=== PATIENT | male | born 1940 | race Caucasian/White ===

== ENCOUNTER 2021-07-23 19:20 | Inpatient (IN) | payer MEDICARE ==
[~2021-07-23] VITALS: Ht 172.7 cm; Wt 68.5 kg
[2021-07-23] MEDS ORDERED: HALOPERIDOL LACTATE 5 MG/1 ML VIAL IM ONE (20:00)
[2021-07-23] MEDS ORDERED: LORAZEPAM 2 MG/1 ML VIAL IM ONE (20:00)
[2021-07-23] MEDS ORDERED: HALOPERIDOL LACTATE 5 MG/1 ML VIAL ONE ×2 (20:02)
[2021-07-23] MEDS ORDERED: LORAZEPAM 2 MG/1 ML VIAL ONE (20:02)
[2021-07-23 20:10] LABS: HEMATOCRIT 37.5 % (36.7-47.1); MEAN CORPUSCULAR HEMOGLOBIN 30.9 uug (23.8-33.4); MEAN CORPUSCULAR VOLUME 94.5 fL (73.0-96.2); PLATELET COUNT (AUTO) 111 K/uL (152-348)
[2021-07-23 20:19] LABS: ALANINE AMINOTRANSFERASE 14 U/L (16-63); ALKALINE PHOSPHATASE 74 U/L (50-136); ASPARTATE AMINOTRANSFERASE 6 U/L (15-37); BILIRUBIN,DIRECT 0.2 mg/dL (0.0-0.2); BILIRUBIN,TOTAL 0.6 mg/dL (0.2-1.0); CARBON DIOXIDE 30 mmol/L (21-32); CHLORIDE 100 mmol/L (98-107); CREATININE 1.2 mg/dL (0.6-1.3); GLUCOSE 112 mg/dL (74-106); POTASSIUM 4.8 mmol/L (3.5-5.1); TOTAL PROTEIN, SERUM 7.3 g/dL (6.4-8.2); UREA NITROGEN, BLOOD 19 mg/dL (7-18)
[2021-07-23 20:20] LABS: ACETAMINOPHEN < 2.0 ug/mL (10-30)
[2021-07-23 20:21] LABS: ETHANOL < 3 MG/DL (0-0)
[2021-07-23] MEDS ORDERED: LEVE500T20 PO (20:45)
[2021-07-23] MEDS ORDERED: PROCHLORPERAZINE PR (20:45)
[2021-07-23] MEDS ORDERED: DIVA125T2 PO (20:45)
[2021-07-23] MEDS ORDERED: TRAZ-257 PO (20:45)
[2021-07-23] MEDS ORDERED: ASPI81TA31 PO (20:45)
[2021-07-23] MEDS ORDERED: CHOL200026 PO (20:45)
[2021-07-23] MEDS ORDERED: ACET-73 PO (20:45)
[2021-07-23] MEDS ORDERED: CLON0.5T4 PO (20:45)
[2021-07-23] MEDS ORDERED: MEMA10TA PO (20:45)
[2021-07-23] MEDS ORDERED: TRAZ-182 PO (20:45)
[2021-07-23] MEDS ORDERED: SENN-261 PO (20:45)
[2021-07-23] MEDS ORDERED: ESCI20TA44 PO (20:45)
[2021-07-23] MEDS ORDERED: POLY17PO4 PO (20:45)
[2021-07-23] MEDS ORDERED: HALO100A2 PO (20:45)
[2021-07-23] MEDS ORDERED: ROXANOL SL (20:45)
[2021-07-23] MEDS ORDERED: LORA2ORA PO (20:45)
[2021-07-23] MEDS ORDERED: RISPERDAL SL (20:45)
[2021-07-23] MEDS ORDERED: LACT10SO3 PO (20:45)
[2021-07-23] MEDS ORDERED: HYOS0.1273 SL (20:45)
[2021-07-23] MEDS ORDERED: C ABH TOP (20:45)
[2021-07-23] MEDS ORDERED: ZINC85CR TP (20:45)
[2021-07-23] MEDS ORDERED: BISA10SU61 RC (20:45)
[2021-07-23 20:48] LABS: THYROID STIMULATING HORMONE 2.992 mIU/mL (0.358-3.740)
[2021-07-24] MEDS: MIRALAX 17 GM POWD.PACK PO SCH (09:00)
[2021-07-24] MEDS ORDERED: ACETAMINOPHEN 325 MG TABLET PO PRN (09:00)
[2021-07-24] MEDS ORDERED: MAG HYDROX/AL HYDROX/SIMETH 30 ML LIQUID UDC PO PRN (09:00)
[2021-07-24] MEDS ORDERED: BISACODYL 10 MG SUPP.RECT RC PRN (09:00)
[2021-07-24 09:20] VITALS: BP 127/71
[2021-07-24] MEDS: SENNOSIDES 1 TABLET PO SCH ×2 (10:00→16:20)
[2021-07-24] MEDS: MEMANTINE HCL 10 MG TABLET PO SCH ×2 (10:00→16:19)
[2021-07-24] MEDS: ASPIRIN 81 MG TAB.CHEW PO SCH (10:00)
[2021-07-24] MEDS ORDERED: BLOOD SUGAR DIAGNOSTIC 1 EACH STRIP VI ONE (10:00)
[2021-07-24] MEDS: CHOLECALCIFEROL 1,000 UNIT TABLET PO SCH (10:00)
[2021-07-24] MEDS ORDERED: HYOSCYAMINE SULFATE 0.125 MG TABLET SL PRN (12:00)
[2021-07-24 16:48] VITALS: BP 151/79
[2021-07-24] MEDS: LORAZEPAM 1 MG TABLET PO PRN (19:49)
[2021-07-24 20:00] VITALS: BP 123/79
[2021-07-24] MEDS: MORPHINE SULFATE 20 MG/1 ML ORAL LIQ. SL PRN (21:07)
[2021-07-25 07:42] VITALS: BP 119/69
[2021-07-25] MEDS: ASPIRIN 81 MG TAB.CHEW PO SCH (08:41)
[2021-07-25] MEDS: MEMANTINE HCL 10 MG TABLET PO SCH ×2 (08:41→16:03)
[2021-07-25] MEDS: MIRALAX 17 GM POWD.PACK PO SCH (08:41)
[2021-07-25] MEDS: CHOLECALCIFEROL 1,000 UNIT TABLET PO SCH (08:41)
[2021-07-25] MEDS: SENNOSIDES 1 TABLET PO SCH ×2 (08:41→16:03)
[2021-07-25] MEDS: MORPHINE SULFATE 20 MG/1 ML ORAL LIQ. SL PRN (15:34)
[2021-07-25] MEDS: LORAZEPAM 1 MG TABLET PO PRN ×2 (15:44→21:06)
[2021-07-25 20:00] VITALS: BP 95/50
[2021-07-25] MEDS: risperiDONE 0.5 MG TABLET PO SCH (21:04)
[2021-07-25] MEDS: RIVASTIGMINE TARTRATE 1.5 MG CAPSULE PO SCH (21:05)
[2021-07-26] MEDS ORDERED: REMEDY ESSENTIAL ZINC PASTE 113 GM TOP PRN (01:45)
[2021-07-26 07:38] VITALS: BP 137/104
[2021-07-26] MEDS: SENNOSIDES 1 TABLET PO SCH ×2 (08:11→17:02)
[2021-07-26] MEDS: CHOLECALCIFEROL 1,000 UNIT TABLET PO SCH (08:11)
[2021-07-26] MEDS: risperiDONE 0.5 MG TABLET PO SCH ×2 (08:11→20:02)
[2021-07-26] MEDS: RIVASTIGMINE TARTRATE 1.5 MG CAPSULE PO SCH ×2 (08:11→20:02)
[2021-07-26] MEDS: ASPIRIN 81 MG TAB.CHEW PO SCH (08:11)
[2021-07-26] MEDS: MIRALAX 17 GM POWD.PACK PO SCH (08:11)
[2021-07-26] MEDS: REMEDY ESSENTIAL ZINC PASTE 113 GM TOP SCH ×2 (08:12→20:04)
[2021-07-26] MEDS: MEMANTINE HCL 10 MG TABLET PO SCH ×2 (08:12→17:02)
[2021-07-26] MEDS: MORPHINE SULFATE 20 MG/1 ML ORAL LIQ. SL PRN (12:43)
[2021-07-26 16:12] VITALS: BP 121/57
[2021-07-26] MEDS: ENSURE ENLIVE (VAN) 240 ML LIQUID PO SCH (17:00)
[2021-07-26 20:02] VITALS: BP 104/59
[2021-07-26] MEDS: TEMAZEPAM 7.5 MG CAPSULE PO PRN (22:48)
[2021-07-27] MEDS: LORAZEPAM 1 MG TABLET PO PRN (04:10)
[2021-07-27] MEDS: RIVASTIGMINE TARTRATE 1.5 MG CAPSULE PO SCH ×2 (09:05→20:06)
[2021-07-27] MEDS: ASPIRIN 81 MG TAB.CHEW PO SCH (09:05)
[2021-07-27] MEDS: MIRALAX 17 GM POWD.PACK PO SCH (09:05)
[2021-07-27] MEDS: MEMANTINE HCL 10 MG TABLET PO SCH ×2 (09:06→17:08)
[2021-07-27] MEDS: risperiDONE 0.5 MG TABLET PO SCH ×2 (09:06→20:06)
[2021-07-27] MEDS: SENNOSIDES 1 TABLET PO SCH ×2 (09:06→17:08)
[2021-07-27] MEDS: ENSURE ENLIVE (VAN) 240 ML LIQUID PO SCH ×2 (09:06→17:09)
[2021-07-27] MEDS: CHOLECALCIFEROL 1,000 UNIT TABLET PO SCH (09:06)
[2021-07-27 09:07] VITALS: BP 149/79
[2021-07-27] MEDS: REMEDY ESSENTIAL ZINC PASTE 113 GM TOP SCH ×2 (09:07→20:07)
[2021-07-27 16:00] VITALS: BP 97/63
[2021-07-27 19:52] VITALS: BP 119/58
[2021-07-27] MEDS: TEMAZEPAM 7.5 MG CAPSULE PO PRN (20:42)
[2021-07-28 07:30] VITALS: BP 119/70
[2021-07-28] MEDS: ASPIRIN 81 MG TAB.CHEW PO SCH (08:19)
[2021-07-28] MEDS: MEMANTINE HCL 10 MG TABLET PO SCH ×2 (08:19→17:25)
[2021-07-28] MEDS: RIVASTIGMINE TARTRATE 1.5 MG CAPSULE PO SCH ×2 (08:20→19:58)
[2021-07-28] MEDS: CHOLECALCIFEROL 1,000 UNIT TABLET PO SCH (08:20)
[2021-07-28] MEDS: SENNOSIDES 1 TABLET PO SCH ×2 (08:20→17:25)
[2021-07-28] MEDS: risperiDONE 0.5 MG TABLET PO SCH ×2 (08:20→19:58)
[2021-07-28] MEDS: ENSURE ENLIVE (VAN) 240 ML LIQUID PO SCH ×2 (08:21→17:56)
[2021-07-28] MEDS: MIRALAX 17 GM POWD.PACK PO SCH (08:21)
[2021-07-28] MEDS: REMEDY ESSENTIAL ZINC PASTE 113 GM TOP SCH ×2 (08:22→19:58)
[2021-07-28 16:00] VITALS: BP 118/79
[2021-07-28] MEDS: LORAZEPAM 1 MG TABLET PO PRN (19:57)
[2021-07-28 20:45] VITALS: BP 152/65
[2021-07-29] MEDS: MORPHINE SULFATE 20 MG/1 ML ORAL LIQ. SL PRN (03:10)
[2021-07-29 07:30] VITALS: BP 105/54
[2021-07-29] MEDS: CHOLECALCIFEROL 1,000 UNIT TABLET PO SCH (08:42)
[2021-07-29] MEDS: ASPIRIN 81 MG TAB.CHEW PO SCH (08:43)
[2021-07-29] MEDS: SENNOSIDES 1 TABLET PO SCH ×2 (08:43→17:00)
[2021-07-29] MEDS: MEMANTINE HCL 10 MG TABLET PO SCH ×2 (08:43→17:00)
[2021-07-29] MEDS: risperiDONE 0.5 MG TABLET PO SCH (08:43)
[2021-07-29] MEDS: RIVASTIGMINE TARTRATE 1.5 MG CAPSULE PO SCH (08:43)
[2021-07-29] MEDS: MIRALAX 17 GM POWD.PACK PO SCH (08:43)
[2021-07-29] MEDS: ENSURE ENLIVE (VAN) 240 ML LIQUID PO SCH ×2 (08:44→17:00)
[2021-07-29] MEDS: REMEDY ESSENTIAL ZINC PASTE 113 GM TOP SCH (08:58)
[2021-07-29 16:00] VITALS: BP 112/67
== END 2021-07-29 16:45 | DRG 885 ==
LOC: ER 19:23 → GPS 07-24 08:08
PROVIDERS: ADMIT Psychiatry & Neurology Psychiatry; ATTEND Family Medicine
DX: F29 Unspecified psychosis not due to a substance or known physiological condition (principal); N17.0 Acute kidney failure with tubular necrosis; F02.81 Dementia in other diseases classified elsewhere, unspecified severity, with behavioral disturbance; D68.59 Other primary thrombophilia; G30.9 Alzheimer's disease, unspecified; Z66 Do not resuscitate; Z91.83 Wandering in diseases classified elsewhere; Z74.09 Other reduced mobility; E78.5 Hyperlipidemia, unspecified; D63.8 Anemia in other chronic diseases classified elsewhere; R53.1 Weakness; Z87.19 Personal history of other diseases of the digestive system; Z79.899 Other long term (current) drug therapy
CPT/HCPCS: 36415; 80164; 80299; 84443; 85025; 93005; 97161; A4663; A6209; G0480; J1630; J2060

== ENCOUNTER 2021-11-16 17:14 | Inpatient (IN) | payer MEDICARE, OTHER ==
[~2021-11-16] VITALS: Ht 172.7 cm; Wt 79.4 kg
[~2021-11-16 17:14] MED LIST: ACET-73 PO; ASPI81TA31 PO; BISA10SU61 RC; C ABH TOP; CHOL200026 PO; HYOS0.1273 SL; LACT10SO3 PO; MEMA10TA PO; POLY17PO4 PO; PROCHLORPERAZINE PR; ROXANOL SL; SENN-261 PO; ZINC85CR TP
[2021-11-16 17:47] LABS: HEMATOCRIT 32.7 % (36.7-47.1); MEAN CORPUSCULAR VOLUME 91.4 fL (73.0-96.2); PLATELET COUNT (AUTO) 151 K/uL (152-348)
[2021-11-16 17:54] LABS: CARBON DIOXIDE 29 mmol/L (21-32); CHLORIDE 104 mmol/L (98-107); CREATININE 1.2 mg/dL (0.6-1.3); GLUCOSE 103 mg/dL (74-106); POTASSIUM 4.3 mmol/L (3.5-5.1); UREA NITROGEN, BLOOD 32 mg/dL (7-18)
--- NOTE | 2021-11-16 17:54 | NUR ---
PT IS IN ROOM #2A. DR LOW EVALUATED THE PT.
[2021-11-16 18:00] LABS: ALANINE AMINOTRANSFERASE 15 U/L (16-63); ALKALINE PHOSPHATASE 80 U/L (50-136); ASPARTATE AMINOTRANSFERASE 10 U/L (15-37); BILIRUBIN,DIRECT 0.1 mg/dL (0.0-0.2); BILIRUBIN,TOTAL 0.3 mg/dL (0.2-1.0); TOTAL PROTEIN, SERUM 7.1 g/dL (6.4-8.2)
[2021-11-16] MEDS ORDERED: RIVA1.5C13 PO (18:06)
[2021-11-16] MEDS ORDERED: CITA20TA16 PO (18:06)
[2021-11-16] MEDS ORDERED: RISP1TAB97 PO (18:06)
[2021-11-16] MEDS ORDERED: [UNRECOGNIZED DRUG - OTHER] PO (18:06)
[2021-11-16] MEDS ORDERED: SENN-261 PO (18:06)
[2021-11-16] MEDS ORDERED: TRAZ-182 PO (18:06)
[2021-11-16] MEDS ORDERED: GABA-532 PO (18:06)
[2021-11-16] MEDS ORDERED: FURO-152 PO (18:06)
[2021-11-16] MEDS ORDERED: ACET-73 PO (18:06)
[2021-11-16 18:07] LABS: ACETAMINOPHEN < 2.0 ug/mL (10-30)
[2021-11-16 18:08] LABS: ETHANOL < 3 MG/DL (0-0)
[2021-11-16] MEDS ORDERED: CALAZIME (18:15)
[2021-11-16] MEDS ORDERED: ELEC237S PO (18:15)
[2021-11-16] MEDS ORDERED: RISP0.5T65 PO ×3 (18:15)
[2021-11-16] MEDS ORDERED: risperiDONE 0.25 MG TABLET PO STA (18:15)
--- NOTE | 2021-11-16 20:30 | NUR ---
NICOLA CRISIS TEAM AT BEDSIDE TO BRIA TAYLOR.
--- NOTE | 2021-11-16 22:30 | NUR ---
GAVE REPORT TO EARLINE SOTO.
[2021-11-16] MEDS ORDERED: BLOOD SUGAR DIAGNOSTIC 1 EACH STRIP VI ONE (22:45)
[2021-11-16] MEDS ORDERED: MAG HYDROX/AL HYDROX/SIMETH 30 ML LIQUID UDC PO PRN (22:45)
[2021-11-16] MEDS ORDERED: MAGNESIUM HYDROXIDE 30 ML LIQUID UDC PO PRN (22:45)
--- NOTE | 2021-11-16 22:47 | NUR ---
Pt. admitted to [facility] , under care of Dr. Bueno and Joselo Dx: psychosis Belongs List completed
[2021-11-16] MEDS: TEMAZEPAM 7.5 MG CAPSULE PO PRN (23:18)
[2021-11-16] MEDS: LORAZEPAM 1 MG TABLET PO PRN (23:57)
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
[2021-11-17 07:30] VITALS: BP 123/65
[2021-11-17 08:20] LABS: BILIRUBIN,TOTAL 0.5 mg/dL (0.2-1.0); CREATININE 1.3 mg/dL (0.6-1.3); POTASSIUM 4.1 mmol/L (3.5-5.1); TOTAL PROTEIN, SERUM 7.4 g/dL (6.4-8.2)
--- NOTE | 2021-11-17 15:47 | NUR ---
Received patient awake in the hallway. A X 1 to self. Pt. is confused, disoriented, restless, disorganized, combative with nursing care. Pt states "Please get me out of here. I need to go" "I need to get up and go" "Come on let me out" "Why you don't help me?" Pt. requires total care. Reassurance given. Fall and safety precautions implemented.
[2021-11-17 16:39] VITALS: BP 144/113
[2021-11-17 20:40] VITALS: BP 159/84
[2021-11-17] MEDS: LORAZEPAM 1 MG TABLET PO PRN (21:19)
[2021-11-17] MEDS ORDERED: risperiDONE 0.5 MG TABLET PO SCH (21:30)
[2021-11-17] MEDS: RIVASTIGMINE TARTRATE 1.5 MG CAPSULE PO SCH (22:00)
[2021-11-17] MEDS: TEMAZEPAM 7.5 MG CAPSULE PO PRN (22:00)
[2021-11-17] MEDS: DIVALPROEX SPRINKLE 125 MG CAP.SPRINK PO SCH (22:00)
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
[2021-11-18 07:30] VITALS: BP 126/84
[2021-11-18] MEDS: CHOLECALCIFEROL 400 UNITS TABLET PO SCH (08:48)
[2021-11-18] MEDS: RIVASTIGMINE TARTRATE 1.5 MG CAPSULE PO SCH ×2 (08:49→20:36)
[2021-11-18] MEDS: SENNOSIDES 1 TABLET PO SCH ×2 (08:49→17:44)
[2021-11-18] MEDS: ASPIRIN 81 MG TAB.CHEW PO SCH (08:49)
[2021-11-18] MEDS: DIVALPROEX SPRINKLE 125 MG CAP.SPRINK PO SCH ×2 (08:49→20:36)
[2021-11-18] MEDS: risperiDONE 1 MG TABLET PO SCH ×2 (08:49→20:36)
--- NOTE | 2021-11-18 15:07 | NUR ---
Received patient sleeping in his room. A X 1 to self. Pt. is confused, restless, gets agitated with nursing care. Pt states "I need to go to work, my car is outside" "Why don't you help me to get out of here?" "Hey guys, let's go outside". Pt. requires total assistance with ADL. Reality orientation provided. Fall and safety precautions implemented.
[2021-11-18 15:30] VITALS: BP 152/77
--- NOTE | 2021-11-18 16:25 | NUR ---
ADAM Initial Discharge Note: Pt currently resides at [facility]. ADAM will be in contact with [place] and pt's , Rupinder ([phone]) and son, George, to discuss discharge plan. ADAM will continue to work with pt, family and MD to ensure a safe and proper discharge plan.
[2021-11-18] MEDS: LORAZEPAM 1 MG TABLET PO PRN (20:36)
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
[2021-11-19 07:30] VITALS: BP 139/48
[2021-11-19] MEDS: LORAZEPAM 1 MG TABLET PO PRN ×2 (08:30→16:42)
--- NOTE | 2021-11-19 08:35 | NUR ---
Patient is given Ativan 1 mg at 08:30 for agitation and combativeness, will be monitored for effectiveness.
[2021-11-19] MEDS: ASPIRIN 81 MG TAB.CHEW PO SCH (09:42)
[2021-11-19] MEDS: DIVALPROEX SPRINKLE 125 MG CAP.SPRINK PO SCH ×2 (09:42→20:22)
[2021-11-19] MEDS: risperiDONE 1 MG TABLET PO SCH ×2 (09:42→20:23)
[2021-11-19] MEDS: SENNOSIDES 1 TABLET PO SCH ×2 (09:42→17:24)
[2021-11-19] MEDS: RIVASTIGMINE TARTRATE 1.5 MG CAPSULE PO SCH ×2 (09:42→20:22)
[2021-11-19] MEDS: CHOLECALCIFEROL 400 UNITS TABLET PO SCH (09:43)
--- NOTE | 2021-11-19 09:56 | NUR ---
ADAM Discharge Update: ADAM spoke with pt's web content & social media manager, Mimi at [facility] who stated that pt cannot return to [place] due to current behavior. Terrell stated that pt's , Rupinder ([phone]) and son, George ([phone]) who are both DPOA's of the pt have found a usp called [facility] ([phone]) and speak to [place] or Jose. ADAM will contacted the family and discuss the discharge plan.
--- NOTE | 2021-11-19 10:49 | NUR ---
Firearms Report: Test Rider completed and submitted a DOJ firearms report for 5150 a danger to others and grave disability certifications. A copy of report has been placed in patient chart.
--- NOTE | 2021-11-19 14:19 | NUR ---
Received patient sleeping in his room. A X 1 to person. Pt. is anxious, restless, confused. Pt states "Let's us go" "I need to go home" "My family depends on me" Pt. ambulates with assistance, gets agitated when nursing care is provided. Reassurance given. Fall and safety precautions implemented.
--- NOTE | 2021-11-19 15:25 | NUR ---
ADAM Discharge Update: ADAM spoke with pt's manager social services, Mimi ([phone]) and Delia ([phone]) at [facility] who stated that pt is welcome back upon discharge. Pt's son, George ([phone]) is aware and agreeable. ADAM informed George that per pt's psychiatrist, Dr. Belcher, pt is not cleared for discharge today per families request. George is aware and agreeable that pt will continue care at [facility] until Dr. Belcher clears pt for safe discharge.
[2021-11-19 16:23] VITALS: BP 135/54
--- NOTE | 2021-11-19 16:45 | NUR ---
Patient is given Ativan 1 mg at 16:42 for agitation and anxiety, will be monitored for effectiveness.
--- NOTE | 2021-11-19 18:38 | NUR ---
Patient is given Milk of Magnesia for constipation at 18:30, will be monitored for effectiveness.
[2021-11-19 19:44] VITALS: BP 131/70
[2021-11-20] MEDS: LORAZEPAM 1 MG TABLET PO PRN (06:34)
[2021-11-20] MEDS: ACETAMINOPHEN 325 MG TABLET PO PRN (06:34)
--- NOTE | 2021-11-20 06:42 | NUR ---
Patient had 2 BMs last night. He was combative with the staff providing care. Multiple attempts to reorient and redirect this patient were unsuccessful. Safety Stratiges remain in place.
[2021-11-20 07:30] VITALS: BP 135/72
[2021-11-20] MEDS: SENNOSIDES 1 TABLET PO SCH ×2 (08:30→16:55)
[2021-11-20] MEDS: DIVALPROEX 250 MG TABLET.DR PO SCH ×3 (08:30→16:55)
[2021-11-20] MEDS: ASPIRIN 81 MG TAB.CHEW PO SCH (08:30)
[2021-11-20] MEDS: risperiDONE 1 MG TABLET PO SCH ×2 (08:30→21:52)
[2021-11-20] MEDS: RIVASTIGMINE TARTRATE 1.5 MG CAPSULE PO SCH ×2 (08:30→21:52)
[2021-11-20] MEDS: CHOLECALCIFEROL 400 UNITS TABLET PO SCH (08:31)
--- NOTE | 2021-11-20 08:59 | NUR ---
GPS: RECEIVED PT ON CHAIR FOR SAFETY. PT COMPLIANT WITH MEDS. PT CONFUSED AND FORGETFUL. DENIES PAIN OR DISCOMFORT. NO AGITATION NOTED AT THIS TIME.
--- NOTE | 2021-11-20 17:14 | NUR ---
GPS: PT SOMEWHAT CONFUSED AND FORGETFUL. A BIT RESISTIVE AND COMBATIVE WHEN GIVING CARE OR CHANGING DIAPER. PT ON CHAIR FOR SAFETY BUT GIVEN CHANCE TO AMBULATE WITH 2 PERSON ASSIST. PT WITH EPISODE OF BEING ANXIOUS BUT ABLE TO BE REDIRECTED.
[2021-11-20 20:00] VITALS: BP 142/87
[2021-11-20] MEDS: TEMAZEPAM 7.5 MG CAPSULE PO PRN (21:52)
[2021-11-21 08:13] VITALS: BP 142/55
[2021-11-21] MEDS: ASPIRIN 81 MG TAB.CHEW PO SCH (09:12)
[2021-11-21] MEDS: RIVASTIGMINE TARTRATE 1.5 MG CAPSULE PO SCH ×2 (09:12→22:03)
[2021-11-21] MEDS: DIVALPROEX 250 MG TABLET.DR PO SCH (09:12)
[2021-11-21] MEDS: SENNOSIDES 1 TABLET PO SCH ×2 (09:12→17:34)
[2021-11-21] MEDS: CHOLECALCIFEROL 400 UNITS TABLET PO SCH (09:13)
[2021-11-21] MEDS: risperiDONE 1 MG TABLET PO SCH ×2 (09:13→22:02)
[2021-11-21] MEDS: DIVALPROEX SPRINKLE 125 MG CAP.SPRINK PO SCH ×3 (09:22→17:34)
[2021-11-21] MEDS: LORAZEPAM 1 MG TABLET PO PRN ×2 (13:27→23:13)
--- NOTE | 2021-11-21 13:30 | NUR ---
Ativan 1 mg was given at 13:27 for anxiety, agitation, combativeness, will be monitored for effectiveness.
--- NOTE | 2021-11-21 16:02 | NUR ---
Received patient sleeping in his room. A X 1 to self. Pt. is confused, restless, disoriented, forgetful. Pt states "Yes, make that transfer" "I need to solve this problem" "Can I go with you?" "I'll be home soon, wait for me". Pt. requires total assistance. Reassurance given. Fall and safety precautions implemented.
[2021-11-21 16:17] VITALS: BP 100/61
[2021-11-21 19:48] VITALS: BP 130/70
[2021-11-21] MEDS: REMEDY ESSENTIAL ZINC PASTE 113 GM TOP SCH (21:00)
[2021-11-21] MEDS: TEMAZEPAM 7.5 MG CAPSULE PO PRN (22:03)
[2021-11-22 08:11] VITALS: BP 117/78
[2021-11-22] MEDS: RIVASTIGMINE TARTRATE 1.5 MG CAPSULE PO SCH ×2 (08:29→21:06)
[2021-11-22] MEDS: DIVALPROEX SPRINKLE 125 MG CAP.SPRINK PO SCH ×3 (08:29→17:33)
[2021-11-22] MEDS: ASPIRIN 81 MG TAB.CHEW PO SCH (08:29)
[2021-11-22] MEDS: SENNOSIDES 1 TABLET PO SCH ×2 (08:30→17:33)
[2021-11-22] MEDS: risperiDONE 1 MG TABLET PO SCH ×2 (08:30→21:06)
[2021-11-22] MEDS: LORAZEPAM 1 MG TABLET PO PRN (12:51)
[2021-11-22] MEDS: CHOLECALCIFEROL 400 UNITS TABLET PO SCH (12:52)
[2021-11-22] MEDS: REMEDY ESSENTIAL ZINC PASTE 113 GM TOP SCH ×2 (12:53→21:07)
--- NOTE | 2021-11-22 15:31 | NUR ---
patient is confused and disoriented took all medication by crash med. agitated and restless at time, Ativan given 1251 pm as ordered. keep patient up to Anjali-chair to [facility] fall , will continue close monitori ng.
[2021-11-22 16:29] VITALS: BP 137/73
[2021-11-22 20:24] VITALS: BP 121/64
[2021-11-22] MEDS: TEMAZEPAM 7.5 MG CAPSULE PO PRN (21:59)
--- NOTE | 2021-11-23 06:10 | NUR ---
GPS: PATIENT REMAIN CONFUSED AND FORGETFUL. DENIES PAIN OR DISCOMFORT. NO AGITATION NOTED AT THIS TIME. SLEPT 4.15 HRS THROUGH THE NIGHT. RESTING ON BED COMFORTABLY.
[2021-11-23 07:30] VITALS: BP 141/71
[2021-11-23] MEDS: risperiDONE 1 MG TABLET PO SCH ×2 (08:29→21:17)
[2021-11-23] MEDS: LORAZEPAM 1 MG TABLET PO PRN (08:29)
[2021-11-23] MEDS: ASPIRIN 81 MG TAB.CHEW PO SCH (08:29)
[2021-11-23] MEDS: DIVALPROEX SPRINKLE 125 MG CAP.SPRINK PO SCH ×3 (08:29→16:40)
[2021-11-23] MEDS: ACETAMINOPHEN 325 MG TABLET PO PRN (08:30)
[2021-11-23] MEDS: RIVASTIGMINE TARTRATE 1.5 MG CAPSULE PO SCH ×2 (08:30→21:16)
[2021-11-23] MEDS: CHOLECALCIFEROL 400 UNITS TABLET PO SCH (08:37)
[2021-11-23] MEDS: SENNOSIDES 1 TABLET PO SCH ×2 (08:37→16:40)
[2021-11-23] MEDS: REMEDY ESSENTIAL ZINC PASTE 113 GM TOP SCH ×2 (08:38→21:17)
--- NOTE | 2021-11-23 12:15 | NUR ---
ADMA Discharge Update: Delia ([phone]) at [facility] contacted SW to discuss pt's current status and anticipated discharge day. ADAM stated that pt is currently compliant with treatment. ADAM stated that Dr. Belcher has not given a discharge order yet. Delia is aware and stated she will contact pt's son, George ([phone]) and update him as well.
[2021-11-23 14:38] VITALS: BP 108/75
--- NOTE | 2021-11-23 17:46 | NUR ---
Received patient is confused and disoriented took all medication by crash med. agitated and restless at time, Ativan given x1 as prn as ordered.patient with poor insight and judgement keep patient up to Anjali-chair to [place] fall , will continue close monitoring
[2021-11-23 20:00] VITALS: BP 122/63
--- NOTE | 2021-11-23 20:30 | NUR ---
RECEIVED PATIENT IN THE HALLWAY SITTING IN A DINA CHAIR NEAR THE NURSING STATION FOR SAFETY. HE IS NOTED AWAKE A/O X 1. HE IS CONFUSED HE IS RESTLESS AND HE IS HARD TO REDIRECT. HE IS UNABLE TO HAVE A MEANINGFUL CONVERSATION WITH THIS APPLE PEELER OPERATOR. PATIENT V/S ARE STABLE. HE WAS GIVEN PO FLUIDS AND SNACKS. SAFETY AND FALL PRECAUTIONS ARE IN PLACE. WILL CONTINUE TO MONITOR,
[2021-11-23] MEDS: TEMAZEPAM 7.5 MG CAPSULE PO PRN (22:35)
[2021-11-24] MEDS: LORAZEPAM 1 MG TABLET PO PRN ×2 (00:35→15:46)
[2021-11-24 07:30] VITALS: BP 126/64
[2021-11-24] MEDS: CHOLECALCIFEROL 400 UNITS TABLET PO SCH (08:54)
[2021-11-24] MEDS: DIVALPROEX SPRINKLE 125 MG CAP.SPRINK PO SCH ×3 (08:55→17:14)
[2021-11-24] MEDS: SENNOSIDES 1 TABLET PO SCH ×2 (08:55→17:14)
[2021-11-24] MEDS: ASPIRIN 81 MG TAB.CHEW PO SCH (08:55)
[2021-11-24] MEDS: RIVASTIGMINE TARTRATE 1.5 MG CAPSULE PO SCH ×2 (08:55→20:47)
[2021-11-24] MEDS: risperiDONE 1 MG TABLET PO SCH ×2 (08:55→20:48)
[2021-11-24] MEDS: REMEDY ESSENTIAL ZINC PASTE 113 GM TOP SCH ×2 (08:57→20:50)
--- NOTE | 2021-11-24 10:05 | NUR ---
ADAM Family Contact: SW left a voicemail for a call back for pt's son, George ([phone]) regarding pt's current status, treatment plan and discharge plan. ADAM stated that per Dr. Belcher, there is currently no discharge order as pt is not yet stable for safe discharge.
--- NOTE | 2021-11-24 15:50 | NUR ---
Patient is given Ativan 1 mg at 15:46 for agitation, restless, and combativeness, will be monitored for effectiveness.
[2021-11-24 16:00] VITALS: BP 145/117
--- NOTE | 2021-11-24 17:36 | NUR ---
Received patient sleeping in his room. A X 1 to person. Pt. is anxious, restless, confused, disorganized, combative with nursing care at times. Pt states "Let's go" "I have to go" "I have plans for today" Pt. ambulates with assistance. Requires total assistance. Reality orientation provided. Fall and safety precautions implemented.
[2021-11-24 20:37] VITALS: BP 97/58
[2021-11-24] MEDS: TEMAZEPAM 7.5 MG CAPSULE PO PRN (22:57)
--- NOTE | 2021-11-25 03:25 | NUR ---
Received to care, up in gray chair, confused, and disoriented. Compliant with medications. Fed snacks and given fluids. PRN Restoril given at bedtime, and assisted to bed. Has slept well, all night. No distress noted. Will continue to monitor closely.
[2021-11-25] MEDS: LORAZEPAM 1 MG TABLET PO PRN (04:12)
--- NOTE | 2021-11-25 05:10 | NUR ---
Became awake and restless around 0345. PRN A tivan given at 0412, AM care given, and assisted up in gray chair. Is calmer now, remains awake, but less agitated, talking to self, quietly, at nurses station.
[2021-11-25 07:30] VITALS: BP 92/58
[2021-11-25] MEDS: risperiDONE 1 MG TABLET PO SCH ×2 (08:54→21:44)
[2021-11-25] MEDS: SENNOSIDES 1 TABLET PO SCH ×2 (08:54→17:21)
[2021-11-25] MEDS: ASPIRIN 81 MG TAB.CHEW PO SCH (08:54)
[2021-11-25] MEDS: DIVALPROEX SPRINKLE 125 MG CAP.SPRINK PO SCH ×3 (08:54→17:21)
[2021-11-25] MEDS: CHOLECALCIFEROL 400 UNITS TABLET PO SCH (08:54)
[2021-11-25] MEDS: RIVASTIGMINE TARTRATE 1.5 MG CAPSULE PO SCH ×2 (08:56→21:44)
[2021-11-25] MEDS: REMEDY ESSENTIAL ZINC PASTE 113 GM TOP SCH ×2 (09:13→21:43)
--- NOTE | 2021-11-25 09:49 | NUR ---
ADAM Discharge Update: ADAM spoke with Delia ([phone]) from [facility]. ADAM stated that per Dr. Belcher, pt is not ready for discharge yet. ADAM stated this journalists and other writers left a voicemail for the pt's son, George ([phone]) yesterday on 11/24/21 regarding the latest update. ADAM stated this journalists and other writers will follow-up with Dr. Belcher regarding an anticipated discharge date and contact George and Delia to inform. Delia was agreeable and stated she will update George as well regarding this conversation.
[2021-11-25 15:31] VITALS: BP 95/49
[2021-11-25 19:55] VITALS: BP 100/52
[2021-11-25] MEDS: TEMAZEPAM 7.5 MG CAPSULE PO PRN (22:53)
[2021-11-26] MEDS: LORAZEPAM 1 MG TABLET PO PRN ×2 (03:45→15:36)
--- NOTE | 2021-11-26 04:46 | NUR ---
Received lying in bed, initially restless until bedtime medications and Restoril were given. Slept most of night. Became awake and restless around 0330. Attempting to get out of bed. PRN Ativan given at 0345, AM care given, and assisted up in gray chair. Is less agitated, talking to self, quietly, at nurses station. Dozing on and off intermittently.
[2021-11-26 07:54] VITALS: BP 95/55
[2021-11-26] MEDS: ASPIRIN 81 MG TAB.CHEW PO SCH (09:36)
[2021-11-26] MEDS: DIVALPROEX SPRINKLE 125 MG CAP.SPRINK PO SCH ×3 (09:37→16:24)
[2021-11-26] MEDS: RIVASTIGMINE TARTRATE 1.5 MG CAPSULE PO SCH ×2 (09:37→20:20)
[2021-11-26] MEDS: SENNOSIDES 1 TABLET PO SCH ×2 (09:37→16:26)
[2021-11-26] MEDS: CHOLECALCIFEROL 400 UNITS TABLET PO SCH (09:38)
[2021-11-26] MEDS: risperiDONE 1 MG TABLET PO SCH ×2 (09:38→20:19)
[2021-11-26] MEDS: REMEDY ESSENTIAL ZINC PASTE 113 GM TOP SCH ×2 (10:01→20:21)
--- NOTE | 2021-11-26 15:39 | NUR ---
Gps/Machinery Engineer- Stayed up in his gray-chair, attended group therapy, interacts when engaged, confosed, speech incoherent. Patient was put to bed to rest, since patient was up since before breakfast, but patient kept climbing oob., potential for fall, confused, poor safety judgement. Kept up by the Nurses station, monitoring needs and safety
[2021-11-26 16:09] VITALS: BP 109/48
[2021-11-26 16:59] LABS: ALANINE AMINOTRANSFERASE 21 U/L (16-63); ALKALINE PHOSPHATASE 82 U/L (50-136); ASPARTATE AMINOTRANSFERASE 14 U/L (15-37); BILIRUBIN,TOTAL 0.4 mg/dL (0.2-1.0); CARBON DIOXIDE 29 mmol/L (21-32); CHLORIDE 104 mmol/L (98-107); CREATININE 1.6 mg/dL (0.6-1.3); GLUCOSE 124 mg/dL (74-106); POTASSIUM 4.9 mmol/L (3.5-5.1); TOTAL PROTEIN, SERUM 7.8 g/dL (6.4-8.2); UREA NITROGEN, BLOOD 39 mg/dL (7-18)
[2021-11-26 20:26] VITALS: BP 134/70
[2021-11-27] MEDS: REMEDY ESSENTIAL ZINC PASTE 113 GM TOP SCH ×2 (06:15→20:02)
--- NOTE | 2021-11-27 06:15 | NUR ---
Patient slept well. 7.45 hours. He is up early this am. Very confused, but non combative. Am care provided and oral fluids encouraged.This leader writer will continue to obtain a urine sample per order, but d/t incontinence, it has been difficult. Safety Stratiges remain in place .
[2021-11-27 07:37] VITALS: BP 111/62
[2021-11-27] MEDS: RIVASTIGMINE TARTRATE 1.5 MG CAPSULE PO SCH ×2 (08:00→20:02)
[2021-11-27] MEDS: ASPIRIN 81 MG TAB.CHEW PO SCH (08:00)
[2021-11-27] MEDS: risperiDONE 1 MG TABLET PO SCH (08:00)
[2021-11-27] MEDS: DIVALPROEX SPRINKLE 125 MG CAP.SPRINK PO SCH ×3 (08:00→16:18)
[2021-11-27] MEDS: CHOLECALCIFEROL 400 UNITS TABLET PO SCH (08:01)
[2021-11-27] MEDS: SENNOSIDES 1 TABLET PO SCH ×2 (08:01→16:18)
--- NOTE | 2021-11-27 09:34 | NUR ---
PT RECEIVED SITTING UP ON REZA CHAIR IN UNIT HALLWAY. CONFUSED AND DISORIENTED. NO AGGRESSIVE OR COMBATIVE BEHAVIOR NOTED. COMPLIANT WITH MEDICATIONS WITH REINFORCEMENT. TOTAL CARE. REQUIRES EXTENSIVE ASSIST WITH ADLS. EASILY IRRITABLE AT TIMES.
[2021-11-27 14:10] LABS: *BILIRUBIN,URIN NEGATIVE (NEGATIVE); *CLARITY,URINE CLEAR (CLEAR); *COLOR,URINE YELLOW (YELLOW); *KETONES,URINE 2+ (NEGATIVE); *UROBILINOGEN,URINE 0.2 E.U./dl (NORMAL); LEUKOCYTE ESTERASE ,URINE NEGATIVE (NEGATIVE); NITRITE, URINE NEGATIVE (NEGATIVE); PH,URINE 5.5 (5.0-8.0); UGLUCOSE NEGATIVE (NEGATIVE)
[2021-11-27 14:11] LABS: *BLOOD, URINE TRACE (NEGATIVE)
[2021-11-27 15:47] VITALS: BP 109/43
[2021-11-27] MEDS: risperiDONE 2 MG TABLET PO SCH (20:02)
[2021-11-27 20:16] LABS: BACTERIA,URINE MODERATE /HPF (NONE SEEN); SQUAMOUS EPITHELIAL CELL,UR FEW /HPF (NONE SEEN); WBC,URINE 0-3 /HPF (0-3)
[2021-11-27 20:39] VITALS: BP 156/86
[2021-11-27] MEDS ORDERED: risperiDONE 1 MG TABLET PO SCH (21:00)
[2021-11-28] MEDS: TEMAZEPAM 7.5 MG CAPSULE PO PRN (00:46)
[2021-11-28] MEDS: ACETAMINOPHEN 325 MG TABLET PO PRN (00:46)
[2021-11-28] MEDS: REMEDY ESSENTIAL ZINC PASTE 113 GM TOP SCH ×2 (06:02→20:35)
[2021-11-28 08:14] LABS: ALANINE AMINOTRANSFERASE 29 U/L (16-63); ALKALINE PHOSPHATASE 76 U/L (50-136); ASPARTATE AMINOTRANSFERASE 34 U/L (15-37); BILIRUBIN,TOTAL 0.5 mg/dL (0.2-1.0); CARBON DIOXIDE 31 mmol/L (21-32); CHLORIDE 105 mmol/L (98-107); CREATININE 1.4 mg/dL (0.6-1.3); GLUCOSE 104 mg/dL (74-106); POTASSIUM 4.3 mmol/L (3.5-5.1); UREA NITROGEN, BLOOD 34 mg/dL (7-18)
[2021-11-28 08:39] VITALS: BP 95/47
[2021-11-28] MEDS: SENNOSIDES 1 TABLET PO SCH ×2 (09:00→17:00)
[2021-11-28] MEDS: ASPIRIN 81 MG TAB.CHEW PO SCH (10:08)
[2021-11-28] MEDS: DIVALPROEX SPRINKLE 125 MG CAP.SPRINK PO SCH ×3 (10:09→13:05)
[2021-11-28] MEDS: RIVASTIGMINE TARTRATE 1.5 MG CAPSULE PO SCH ×2 (10:09→20:35)
[2021-11-28] MEDS: risperiDONE 2 MG TABLET PO SCH ×2 (10:10→20:35)
[2021-11-28] MEDS: CHOLECALCIFEROL 400 UNITS TABLET PO SCH (10:13)
--- NOTE | 2021-11-28 10:29 | NUR ---
patient too lethargic to swallow medications patient drooling when drinking water . Patient received sleeping pill last night, no distress noted just drowsy. Continue to monitor for alertness
[2021-11-28] MEDS: LORAZEPAM 1 MG TABLET PO PRN ×2 (13:07→19:58)
[2021-11-28 15:08] VITALS: BP 114/44
--- NOTE | 2021-11-28 18:21 | NUR ---
Patient very confused pulling at chairs and moving about in gray chair, hand fed diets fair intake, assisted with adls and safety continue treatment plans
[2021-11-28 20:00] VITALS: BP 144/78
[2021-11-29] MEDS: LORAZEPAM 1 MG TABLET PO PRN (03:05)
--- NOTE | 2021-11-29 03:52 | NUR ---
GPS: Nursing Notes: Thought Disorder: Patient is awake and responding to his name, impaired judgment, resistant with nursing care, disoriented, disorganized, confused, gets easily agitated when assisting him with his ADL's, poor impulse control, banging on the table, needs assistance with ambulation, unsteady and weak gait, unable to formulate a viable plan for self care, episodes of pushing staff away when changing his wet diaper, redirected and reoriented during shift, continue to monitor for safety, continue with treatment plan.
--- NOTE | 2021-11-29 06:38 | NUR ---
GPS: Nursing Notes: Sleeping Hours: Patient able to sleep 6 hours and 15 minutes last night, continue to monitor for safety, continue with treatment plan.
[2021-11-29 07:40] VITALS: BP 118/63
[2021-11-29] MEDS: RIVASTIGMINE TARTRATE 1.5 MG CAPSULE PO SCH ×2 (10:48→20:36)
[2021-11-29] MEDS: DIVALPROEX SPRINKLE 125 MG CAP.SPRINK PO SCH ×3 (10:49→17:07)
[2021-11-29] MEDS: risperiDONE 2 MG TABLET PO SCH ×2 (10:49→20:36)
[2021-11-29] MEDS: REMEDY ESSENTIAL ZINC PASTE 113 GM TOP SCH ×2 (10:49→20:33)
[2021-11-29] MEDS: CHOLECALCIFEROL 400 UNITS TABLET PO SCH (10:49)
[2021-11-29] MEDS: ASPIRIN 81 MG TAB.CHEW PO SCH (10:49)
[2021-11-29] MEDS: SENNOSIDES 1 TABLET PO SCH ×2 (10:52→17:07)
--- NOTE | 2021-11-29 11:05 | NUR ---
GPS: PT JUST WOKE UP LATE AND WAS PLACED TO CHAIR FOR SAFETY. RISISTIVE TO CARE SPECIALLY WITH ADL'S. PT COMPLIANT TO MEDICATIONS. NO AGITATION NOTED AT THIS TIME.
--- NOTE | 2021-11-29 15:26 | NUR ---
ADAM Family Contact: ADAM contacted pt's son and DPOA, George ([phone]) and left a voicemail for a call back regarding pt's new discharge details for date.
[2021-11-29 16:13] VITALS: BP 151/61
--- NOTE | 2021-11-29 18:40 | NUR ---
GPS: PT COMPLIANT WITH CARE AND MEDS. RESISTIVE WITH ADL'S. PT WITH EPISODE OF PUSHING THE CHAIR BACKWARD AND PUSHING THE FOOD TRAY. MAXIMUM ASSISTANCE WITH FEEDING.
[2021-11-29 19:51] VITALS: BP 153/74
[2021-11-30] MEDS: TEMAZEPAM 7.5 MG CAPSULE PO PRN (00:59)
[2021-11-30 07:30] VITALS: BP 141/79
[2021-11-30] MEDS: risperiDONE 2 MG TABLET PO SCH ×2 (09:17→20:02)
[2021-11-30] MEDS: DIVALPROEX SPRINKLE 125 MG CAP.SPRINK PO SCH ×3 (09:17→17:20)
[2021-11-30] MEDS: SENNOSIDES 1 TABLET PO SCH ×2 (09:17→17:34)
[2021-11-30] MEDS: CHOLECALCIFEROL 400 UNITS TABLET PO SCH (09:17)
[2021-11-30] MEDS: ASPIRIN 81 MG TAB.CHEW PO SCH (09:17)
[2021-11-30] MEDS: REMEDY ESSENTIAL ZINC PASTE 113 GM TOP SCH ×2 (09:18→20:02)
[2021-11-30] MEDS: RIVASTIGMINE TARTRATE 1.5 MG CAPSULE PO SCH ×2 (10:11→20:02)
[2021-11-30] MEDS: ACETAMINOPHEN 325 MG TABLET PO PRN ×2 (10:12→17:20)
[2021-11-30] MEDS: LORAZEPAM 1 MG TABLET PO PRN (12:10)
--- NOTE | 2021-11-30 13:34 | NUR ---
GPS: Nursing Notes: Thought Disorder: Patient is awake and responding to his name, disoriented, confused, disorganized, poor judgment, impaired judgment, gets easily irritable when assisting him with ADL's, pushing staff away when helping him with diaper change, poor impulse control at times, unkempt appearance, unable to formulate a viable plan for self care, continue to monitor for safety, continue with treatment plan.
--- NOTE | 2021-11-30 14:12 | NUR ---
ADAM Family Contact: ADAM contacted pt's son and DPOA, George ([phone]) and discussed pt's new discharge plan for Monday, the 2021 to return to [facility]. ADAM stated this writer producer spoke to Delia ([phone]) from [place] who confirmed pt's return on Monday. George is aware and agreeable.
[2021-11-30 15:31] VITALS: BP 129/69
--- NOTE | 2021-11-30 16:28 | NUR ---
SW Discharge Update: SW contacted Delia ([phone]) from [address], [place] [address] regarding pt's discharge confirmation. Per Delia after providing an in person consultation, pt is accepted to return to their facility on 11/30/21. Pt's son, George ([phone]) is aware and agreeable per conversation with the SW today.
[2021-11-30] MEDS: ENSURE ENLIVE (VAN) 240 ML LIQUID PO SCH (17:21)
[2021-11-30 20:08] VITALS: BP 147/76
--- NOTE | 2021-11-30 20:30 | NUR ---
Received patient in the hallway sitting in a wolfgang chair closed to the nursing station. He was noted confused and disorganized. pt is unable to have a meaningful conversation with this database report writer. No aggressive or combative bx noted at this time, patient is able to accept care as he needs help with ADLs. His v/s are stable. he is in no distress. He was given PO fluids and snacks. safety and fall precaution are in place. will continue to monitor.
[2021-12-01 07:30] VITALS: BP 127/61
[2021-12-01 08:00] LABS: CARBON DIOXIDE 29 mmol/L (21-32); CHLORIDE 105 mmol/L (98-107); CREATININE 1.3 mg/dL (0.6-1.3); GLUCOSE 101 mg/dL (74-106); POTASSIUM 4.3 mmol/L (3.5-5.1); UREA NITROGEN, BLOOD 42 mg/dL (7-18)
[2021-12-01] MEDS: ASPIRIN 81 MG TAB.CHEW PO SCH (08:45)
[2021-12-01] MEDS: DIVALPROEX SPRINKLE 125 MG CAP.SPRINK PO SCH ×2 (08:46→12:31)
[2021-12-01] MEDS: risperiDONE 2 MG TABLET PO SCH (08:46)
[2021-12-01] MEDS: SENNOSIDES 1 TABLET PO SCH (08:46)
[2021-12-01] MEDS: RIVASTIGMINE TARTRATE 1.5 MG CAPSULE PO SCH (08:46)
[2021-12-01] MEDS: CHOLECALCIFEROL 400 UNITS TABLET PO SCH (08:46)
[2021-12-01] MEDS: ENSURE ENLIVE (VAN) 240 ML LIQUID PO SCH (08:47)
[2021-12-01] MEDS: REMEDY ESSENTIAL ZINC PASTE 113 GM TOP SCH (08:54)
--- NOTE | 2021-12-01 11:30 | NUR ---
Received patient sleeping in his room. A/O X 1 to self. Pt. is confused, disoriented, flat, disorganized, combative at times. Pt. is compliant with medications. Total care. Reassurance given. Fall and safety precautions implemented.
--- NOTE | 2021-12-01 13:29 | NUR ---
Received orders to discharge this patient to [facility] by [facility]. All belongings were returned to the patient. Pt. denies pain or any discomfort, SOB. Patient left the unit at 13:25. Emotional support provided. Fall and safety precautions implemented.
== END 2021-12-01 13:25 | DRG 885 ==
LOC: ER 17:17 → GPS 22:37
PROVIDERS: ADMIT Psychiatry & Neurology Psychiatry; ATTEND Nurse Practitioner Acute Care
DX: F29 Unspecified psychosis not due to a substance or known physiological condition (principal); N17.0 Acute kidney failure with tubular necrosis; E78.5 Hyperlipidemia, unspecified; E86.0 Dehydration; D63.8 Anemia in other chronic diseases classified elsewhere; F39 Unspecified mood [affective] disorder; Z20.822 Contact with and (suspected) exposure to COVID-19; Z79.899 Other long term (current) drug therapy; F03.90 Unspecified dementia, unspecified severity, without behavioral disturbance, psychotic disturbance, mood disturbance, and anxiety
CPT/HCPCS: 36415; 71045; 80164; 85025; 87086; 93005; 97161; A4663; C1758; G0480; J3490